=== PATIENT | male | born 1970 | race Caucasian/White ===

== ENCOUNTER 2021-12-01 19:12 | Emergency (ER) | payer MEDICARE, MEDICAID ==
[~2021-12-01] VITALS: Ht 175.3 cm; Wt 72.7 kg
[2021-12-01 19:15] VITALS: BP 129/91
--- NOTE | 2021-12-01 19:40 | NUR ---
REPORT MADE TO [facility] BY PATIENT.
[2021-12-01] MEDS ORDERED: bacitracin 15gm ointment TP ONE (20:10)
[2021-12-01] MEDS ORDERED: amox tr/potassium clavulanate 875/125mg TAB PO ONE (20:10)
[2021-12-01] MEDS ORDERED: TETanus/Pertussis (Acell)/Diphther VAC/PF (Tdap-Adult) 0.5ml syringe IMVAC ONE (20:10)
[2021-12-01] MEDS ORDERED: AMOX-117 PO (20:17)
== END 2021-12-01 20:41 | disposition home or self-care (01) ==
LOC: ER 19:13
DX: S60.512A Abrasion of left hand, initial encounter (principal); S60.511A Abrasion of right hand, initial encounter; W54.0XXA Bitten by dog, initial encounter; Y93.89 Activity, other specified; Y92.89 Other specified places as the place of occurrence of the external cause; Y99.8 Other external cause status
CPT/HCPCS: 73090; 90471; 90715; 99283